=== PATIENT | male | born 1945 | race Two or more races ===

== ENCOUNTER 2022-08-01 14:06 | Outpatient (CLI) | payer OTHER ==
[2022-08-01] MEDS ORDERED: GLIMEPIRIDE2 MG (15:39)
[2022-08-01] MEDS ORDERED: JANUMET 50-1,01 EACH PO (15:39)
[2022-08-01] MEDS ORDERED: NORVASC5 MG PO (15:39)
[2022-08-01] MEDS ORDERED: RASAGILINE MESYL1 MG PO (15:40)
[2022-08-01] MEDS ORDERED: PIOGLITAZ-GLIM1 EAC1 PO (15:40)
[2022-08-01] MEDS ORDERED: PRAVASTATIN SOD20 MG PO (15:41)
[2022-08-01] MEDS ORDERED: LEVO-T25 MCG PO (15:41)
== END 2022-08-01 14:21 | disposition home or self-care (01) ==
LOC: LAB 14:06
PROVIDERS: ATTEND Surgery
DX: Z01.810 Encounter for preprocedural cardiovascular examination (principal); D68.9 Coagulation defect, unspecified; N39.0 Urinary tract infection, site not specified; T83.410S Breakdown (mechanical) of implanted penile prosthesis, sequela; Z20.822 Contact with and (suspected) exposure to COVID-19

== ENCOUNTER 2022-08-07 06:15 | Day surgery (SDC) | payer OTHER ==
[~2022-08-07] VITALS: Ht 182.9 cm; Wt 106.6 kg
[~2022-08-07 06:15] MED LIST: GLIMEPIRIDE2 MG; JANUMET 50-1,01 EACH PO; LEVO-T25 MCG PO; NORVASC5 MG PO; PIOGLITAZ-GLIM1 EAC1 PO; PRAVASTATIN SOD20 MG PO; RASAGILINE MESYL1 MG PO
== END 2022-08-07 17:30 | disposition home or self-care (01) ==
LOC: CIR.AMB 06:15
PROVIDERS: ATTEND Surgery
DX: T83.410S Breakdown (mechanical) of implanted penile prosthesis, sequela (principal); Z20.822 Contact with and (suspected) exposure to COVID-19; E78.5 Hyperlipidemia, unspecified; E03.9 Hypothyroidism, unspecified; E11.9 Type 2 diabetes mellitus without complications; Z79.84 Long term (current) use of oral hypoglycemic drugs; I10 Essential (primary) hypertension; F17.210 Nicotine dependence, cigarettes, uncomplicated